=== PATIENT | male | born 1975 | race Caucasian/White ===

== ENCOUNTER 2017-05-15 13:45 | Emergency (ER) | payer OTHER ==
[~2017-05-15] VITALS: Ht 175.3 cm; Wt 63.5 kg
--- NOTE | 2017-05-15 14:20 | NUR ---
PATIENT TO ED DT FLU SYMPTOMS, COUGH AND CONGESTION. PATIENT ALSO NOTED EITH R SIDE FACIAL LUMP. PATIENT IS AFEBRILE/ VSS
[2017-05-15] MEDS ORDERED: ALBUTEROL FS 2.5 MG/3 ML VIAL.NEB ONE (14:50)
[2017-05-15] MEDS ORDERED: CLINDAMYCIN 600 MG in IV D5W 100 ML IV ONE (15:00)
[2017-05-15] MEDS ORDERED: ALBUTEROL FS 2.5 MG/3 ML VIAL.NEB NEB ONE (15:00)
[2017-05-15] MEDS ORDERED: IV NS 0.9% 1,000 ML BAG IV ONE (15:00)
--- NOTE | 2017-05-15 16:40 | NUR ---
IV removed. Catheter intact and site benign. Pressure and 4x4 applied to site. No bleeding noted.
--- NOTE | 2017-05-15 16:51 | NUR ---
Patient discharged to home in stable condition. Written and verbal after care instructions given. Patient verbalizes understanding of instruction.IV removed. Catheter intact and site benign. Pressure and 4x4 applied to site. No bleeding noted.
[2017-05-15 16:52] VITALS: BP 130/74
== END 2017-05-15 16:53 | disposition home or self-care (01) ==
LOC: ER 13:50
DX: K04.7 Periapical abscess without sinus (principal); J18.9 Pneumonia, unspecified organism; F17.210 Nicotine dependence, cigarettes, uncomplicated; J45.909 Unspecified asthma, uncomplicated
CPT/HCPCS: 71010; 87804; 94640; 96365; 99285; A4606; J3490; J7060; Z7610; 87400